=== PATIENT | female | born 1945 | race Caucasian/White ===

== ENCOUNTER 2017-03-22 19:43 | Emergency (ER) | payer MEDICARE, OTHER ==
[2017-03-22] MEDS ORDERED: Tylenol #3 Tablet PO ONE (20:07)
[2017-03-22] MEDS ORDERED: Zofran 4 MG/2 ML VIAL IV ONE (20:10)
[2017-03-22] MEDS ORDERED: Unasyn 3GM / NaCl 100ML 100 ML IV ONE (20:10)
[2017-03-22] MEDS ORDERED: SUBLIMAZE 100 MCG/2 ML IV ONE (20:11)
[2017-03-22] MEDS ORDERED: Sodium Chloride 0.9% 1000 ML 1,000 ML IV SCH (20:15)
[2017-03-22] MEDS ORDERED: Zofran 4 MG/2 ML VIAL ONE (20:17)
[2017-03-22] MEDS ORDERED: Tylenol #3 Tablet ONE (20:18)
--- NOTE | 2017-03-22 20:18 | ERPHSYRPT ---
- History of Present Illness Time Seen by Provider: 03/22/17 20:00 Source: patient Exam Limitations: clinical condition Physician History: PATIENT COMPLAINS OF RIGHT LOWER TOOTHACHE, FOLLOWED BY INCREASING PAIN WITH JAW SWELLING TODAY. DENIES FEVER OR CHILLS, DIFFICULTY SWELLING. Timing/Duration: abrupt onset Severity: moderate ENT Location: facial, dental Prearrival Treatment: no prearrival treatment Modifying Factors: Improves With: nothing Associated Symptoms: facial pain/swelling Allergies/Adverse Reactions: No Known Drug Allergies Allergy (Unverified 03/22/17 20:17) Home Medications: Aspirin 1 tab DAILY 03/22/17 [History] Multivitamin W-Minerals/Lutein [Centrum Silver Tablet] 1 tab DAILY 03/22/17 [ History] - Review of Systems Constitutional: No Fever, No Chills Eyes: No Symptoms Ears, Nose, & Throat: Loose Teeth Respiratory: No Cough, No Dyspnea Cardiac: No Chest Pain, No Edema, No Syncope Abdominal/Gastrointestinal: No Abdominal Pain, No Nausea, No Vomiting, No Diarrhea Genitourinary Symptoms: No Dysuria Musculoskeletal: No Back Pain, No Neck Pain Skin: No Rash Neurological: No Dizziness, No Focal Weakness, No Sensory Changes Psychological: No Symptoms Endocrine: No Symptoms All Other Systems: Reviewed and Negative - Nursing Vital Signs Nursing Vital Signs: Initial Vital Signs Pulse Rate 62 Respiratory Rate 16 Blood Pressure [Right Arm] 152/69 Pain Intensity 2 - Physical Exam General Appearance: no apparent distress, alert Eye Exam: bilateral eye: PERRL, EOMI Ear Exam: bilateral ear: auricle normal, canal normal, TM normal Nasal Exam: normal inspection Throat Exam: pharynx normal, dental tenderness (RIGHT LOWER 1ST MOLAR CAPPED, GINGIVAL SWELLING WITH TENDERNESS), moist mucus membranes, No tonsillar exudate Neck Exam: supple Cardiovascular/Respiratory Exam: normal breath sounds, regular rate/rhythm Abdominal Exam: non-tender, soft Neurologic Exam: alert, oriented x 3, sensation nml, No motor deficits Skin Exam: normal color, warm, dry SpO2: 99 Oxygen Delivery: Room Air Ordered Tests: Active Orders 24 hr Category Date Time Status IV Insertion STAT Care 03/22/17 20:07 Active BLOOD CULTURE Stat Lab 03/22/17 20:35 Received CBC W DIFF Stat Lab 03/22/17 20:30 Completed Medication Summary Generic Name Dose Route Start Last Admin Trade Name Freq PRN Reason Stop Dose Admin Sodium Chloride 1,000 mls @ 100 mls/hr 03/22/17 20:15 03/22/17 20:34 Sodium Chloride 0.9% 1000 Ml IV 04/21/17 20:14 100 mls/hr .Q10H SIMONA Administration Discontinued Medications Generic Name Dose Route Start Last Admin Trade Name Atul PRN Reason Stop Dose Admin Acetaminophen/Codeine Phosphate 2 tab 03/22/17 20:07 Tylenol #3 Tablet PO 03/22/17 20:08 SENT HOME W/ PATIENT ONE Acetaminophen/Codeine Phosphate Confirm 03/22/17 20:18 Tylenol #3 Tablet Administered 03/22/17 20:19 Dose 2 tab .ROUTE .STK-MED ONE Fentanyl Citrate 50 mcg 03/22/17 20:11 03/22/17 20:34 Sublimaze 100 Mcg/2 Ml IV 03/22/17 20:12 50 mcg STAT ONE Administration Fentanyl Citrate Confirm 03/22/17 20:24 Sublimaze 100 Mcg/2 Ml Administered 03/22/17 20:25 Dose 100 mcg .ROUTE .STK-MED ONE Ampicillin Sodium/Sulbactam Sodium 100 mls @ 100 mls/hr 03/22/17 20:10 20:34 Unasyn 3gm / Nacl 100ml IV 03/22/17 21:09 100 mls/hr STAT ONE Administration Ampicillin Sodium/Sulbactam Sodium Confirm 03/22/17 20:21 Unasyn 3gm / Nacl 100ml Administered 03/22/17 20:22 Dose 100 mls @ ud .ROUTE .STK-MED ONE Ondansetron HCl 4 mg 03/22/17 20:10 03/22/17 20:34 Zofran 4 Mg/2 Ml Vial IV 03/22/17 20:11 4 mg STAT ONE Administration Ondansetron HCl Confirm 03/22/17 20:17 Zofran 4 Mg/2 Ml Vial Administered 03/22/17 20:18 Dose 4 mg .ROUTE .STK-MED ONE Lab/Rad Data: Laboratory Result Diagrams 03/22/17 20:30 Laboratory Results 03/22/17 Range/Units 20:30 WBC 10.0 (4.0-10.5) K/mm3 RBC 5.02 (4.1-5.4) M/mm3 Hgb 14.9 (12.0-16.0) gm/dl Hct 43.7 (35-47) % MCV 87.1 (78-100) fl MCH 29.7 (26-32) pg MCHC 34.1 (32-36) g/dl RDW 14.2 H (11.5-14.0) % Plt Count 280 (150-450) K/mm3 MPV 9.4 (6-9.5) fl Gran % 58.5 (36.0-66.0) % Lymphocytes % 27.4 (24.0-44.0) % Monocytes % 8.4 (0.0-12.0) % Eosinophils % 5.4 H (0.00-5.0) % Basophils % 0.3 (0.0-0.4) % Basophils # 0.03 (0-0.4) - Progress Progress Note: 03/22/17 20:52 PATIENT GIVEN IV UNASYN 3GM, FENTANYL 0.1MG IV Counseled pt/family regarding: lab results, diagnosis, need for follow-up - Departure Time of Disposition: 21:35 Departure Disposition: Home Clinical Impression: GINGIVAL ABSCESS Condition: Stable Critical Care Time: No Referrals: JARROD MONTES [Primary Care Provider] - Additional Instructions: CONSULT YOUR DENTIST FOR FOLLOWUP SCHEDULED. ANTIBIOTIC AUGMENTIN 875MG TWICE DAILY FOR 10 DAYS. TYLENOL #3 EVERY 4 HOURS FOR PAIN NEEDED. TYLENOL OR MOTRIN NEEDED FOR FEVER. RETURN TO EMERGENCY FOR INCREASING JAW SWELLING, ONSET OF FEVER OR DIFFICULTY BREATHING OR SWALLOWING. Prescriptions: Codeine Phosphate/APAP #3 [Tylenol #3 Tablet] 1 tab PO Q4H PRN PRN #14 tablet PRN Reason: Pain Amox Tr/Potass Clav. 875 mg [Augmentin 875-125 Tablet] 875 mg PO BID #20 tablet
[2017-03-22] MEDS ORDERED: Sodium Chloride 0.9% 1000 ML 1,000 ML ONE (20:19)
[2017-03-22] MEDS ORDERED: Unasyn 3GM / NaCl 100ML 100 ML ONE (20:21)
[2017-03-22] MEDS ORDERED: SUBLIMAZE 100 MCG/2 ML ONE (20:24)
[2017-03-22 20:41] LABS: BASOPHIL % 0.3 % (0.0-0.4); Eosinophil % 5.4 % (0.00-5.0); Granulocytes % 58.5 % (36.0-66.0); Lymphocytes % 27.4 % (24.0-44.0); Mean Cell Volume 87.1 fl (78-100); Mean Corpuscular Hemoglobin 29.7 pg (26-32); Mean Platelet Volume 9.4 fl (6-9.5); Monocytes % 8.4 % (0.0-12.0); Platelet Count 280 K/mm3 (150-450); Red Blood Count 5.02 M/mm3 (4.1-5.4); Red Cell Distribution Width 14.2 % (11.5-14.0)
[2017-03-22 21:53] VITALS: BP 135/71; PULSE 68; O2SAT 97
== END 2017-03-22 22:07 | disposition home or self-care (01) ==
LOC: ED 19:43
DX: K05.219 Aggressive periodontitis, localized, unspecified severity (principal)
CPT/HCPCS: 36000; 36415; 85025; 87040; 96360; 96365; 96374; 96375; 99284; J0295; J2405; J3010; A9270-GY

== ENCOUNTER 2022-02-06 12:21 | Emergency (ER) | payer MEDICARE, BC ==
[2022-02-06 12:49] VITALS: O2SAT 97
[2022-02-06] MEDS ORDERED: Sodium Chloride 0.9% 1000 ML 1,000 ML ONE (13:00)
[2022-02-06] MEDS: Sodium Chloride 0.9% 1000 ML 1,000 ML IV STA (13:02)
[2022-02-06 13:11] LABS: Basophil (Absolute #) 0.02 (0-0.4); Eosinophil % 3.6 % (0.00-5.0); Eosinophil (Absolute #) 0.23 (0-0.5); Hematocrit 43.9 % (35-47); Lymphocyte (Absolute #) 1.24 (1.0-4.6); Lymphocytes % 19.6 % (24.0-44.0); Mean Cell Volume 88.2 fl (78-100); Mean Corpuscular Hemoglobin 30.1 pg (26-32); Mean Corpuscular Hgb Concent. 34.2 g/dl (32-36); Mean Platelet Volume 9.2 fl (7.5-11.0); Monocyte (Absolute #) 0.53 (0.0-1.3); Monocytes % 8.4 % (0.0-12.0); Neutrophil % 68.1 % (36.0-66.0); Platelet Count 278 K/mm3 (150-450); Red Blood Count 4.98 M/mm3 (4.1-5.4); Red Cell Distribution Width 14.2 % (11.5-14.0); White Blood Count 6.3 K/mm3 (4.0-10.5)
[2022-02-06 13:21] LABS: INR 0.98 (0.8-3.0); PROTIME 11.6 SECONDS (9.4-12.5)
[2022-02-06 13:24] LABS: PTT 29.2 SECONDS (25.1-36.5)
[2022-02-06 13:40] LABS: ALKALINE PHOSPHATASE 73 U/L (38-126); ANION GAP 13.9 MEQ/L (5-15); BLOOD UREA NITROGEN 16 mg/dL (7-17); CHLORIDE 107 mmol/L (98-107); Calcium 9.3 mg/dL (8.4-10.2); Carbon Dioxide 23 mmol/L (22-30); Creatinine 1 0.73 mg/dL (0.52-1.04); EST GLOMERULAR FILTRATION RATE > 60.0 ML/MIN; Glucose 150 mg/dL (74-106); NT PRO BNP 151 pg/mL (0-1800); Potassium 4.2 mmol/L (3.5-5.1); SGOT/AST 36 U/L (14-36); SGPT/ALT 28 U/L (0-35); SODIUM 140 mmol/L (137-145); Total Protein 7.4 g/dL (6.3-8.2)
[2022-02-06] MEDS: Zofran 4 MG/2 ML VIAL IV ONE (14:24)
[2022-02-06] MEDS ORDERED: Hydromorphone 1 mg/ml Injection ONE (14:24)
[2022-02-06] MEDS ORDERED: Zofran 4 MG/2 ML VIAL ONE (14:24)
[2022-02-06] MEDS: Hydromorphone 1 mg/ml Injection IV ONE (14:25)
--- NOTE | 2022-02-06 14:37 | XRAY ---
Indication: Pleuritic chest pain. Multiple contiguous axial images obtained through the chest using 80 cc Isovue 370 contrast. Comparison: None Lungs demonstrates minimal bibasilar subsegmental atelectasis/scarring. No suspicious pulmonary mass/nodule, infiltrate, or effusion. Heart not enlarged. Aorta is normal in course and caliber. [place] right paratracheal calcified nodes. No pathologic mediastinal/hilar lymphadenopathy. Bony thorax intact with osteopenia, mild dextroscoliosis centered at T7, and moderate degenerative changes throughout the spine. Limited upper abdomen demonstrates cholecystectomy clips. Impression: 1. Bibasilar subsegmental atelectasis/scarring, chronic bony findings, and old granulomatous disease. 2. Remaining CT chest with contrast exam is negative.
--- NOTE | 2022-02-06 15:30 | ERPHSYRPT ---
- History of Present Illness Time Seen by Provider: 02/06/22 12:55 Source: patient Exam Limitations: no limitations Patient Subjective Stated Complaint: RIGHT SIDED UPPER BACK/ SHOULDER PAIN Triage Nursing Assessment: ALERT AND ORIENTED, AMBULATED TO ROOM PER SELF. EYES PERRLA, BILATERAL EQUAL CAGE UNLOADER, LUNGS CLEAR, POSITIVE BOWEL SOUNDS. Physician History: Patient is a 76-year-old female who presents with the onset yesterday of pleuritic chest pain in the right scapular area it was severe she took gabapentin last night and finally got some relief went to sleep it seems slightly better this morning but she is worried about the cause of this pain. Timing/Duration: yesterday Quality: throbbing Back Pain Location: T-spine, paraspinous muscles Severity of Pain-Max: moderate Severity of Pain-Current: mild Modifying Factors: Improves With: movement, other (Deep breath) Allergies/Adverse Reactions: erythromycin base Allergy (Verified 02/06/22 12:43) Penicillins Allergy (Verified 02/06/22 12:43) Home Medications: Aspirin 1 tab DAILY 03/22/17 [History] Multivitamin W-Minerals/Lutein [Centrum Silver Tablet] 1 tab DAILY 03/22/17 [History] Hx Tetanus, Diphtheria Vaccination/Date Given: No Hx Influenza Vaccination/Date Given: Yes Hx Pneumococcal Vaccination/Date Given: No Travel Risk - International Travel Have you traveled outside of the country in past 3 weeks: No - Coronavirus Screening Are you exhibiting any of the following symptoms?: No - Vaccine Status Have you recieved a Covid-19 vaccination: Yes Hot Patcher: [place] - Vaccination Dates Date of 2cond Vaccination (if applicable): 01/07/21 - Review of Systems Constitutional: No Fever, No Chills Eyes: No Symptoms Ears, Nose, & Throat: No Symptoms Respiratory: No Cough, No Dyspnea Cardiac: No Chest Pain, No Edema, No Syncope Abdominal/Gastrointestinal: No Abdominal Pain, No Nausea, No Vomiting, No Diarrhea Genitourinary Symptoms: No Dysuria Musculoskeletal: No Back Pain, No Neck Pain Skin: No Rash Neurological: No Dizziness, No Focal Weakness, No Sensory Changes Psychological: No Symptoms Endocrine: No Symptoms All Other Systems: Reviewed and Negative - Past Medical History Pertinent Past Medical History: Yes Neurological History: No Pertinent History Cardiac History: No Pertinent History Respiratory History: Asthma, COPD Endocrine Medical History: Hypothyroidism, Other Musculoskeletal History: Osteoarthritis GI Medical History: GERD Other Medical History: R TKA 08/2020 - Past Surgical History Past Surgical History: Yes Neuro Surgical History: No Pertinent History Gastrointestinal: Cholecystectomy Musculoskeletal: Joint Replacement, Other Female Surgical History: Hysterectomy Other Surgical History: PARTIAL THYROIDCECTOMY, left shoulder, BILATERAL TOTAL KNEE REPLACEMENT - Social History Smoking Status: Never smoker Exposure to second hand smoke: No Drug Use: none Patient Lives Alone: No - Nursing Vital Signs Nursing Vital Signs: Initial Vital Signs Temperature 97.1 F 02/06/22 12:46 Pulse Rate 67 02/06/22 12:46 Respiratory Rate 20 02/06/22 12:46 Blood Pressure 173/88 02/06/22 12:46 O2 Sat by Pulse Oximetry 97 02/06/22 12:46 Pain Scale Pain Intensity 8 - Physical Exam General Appearance: no apparent distress, alert Eye Exam: PERRL/EOMI, eyes nml inspection Neck Exam: normal inspection, non-tender, supple, full range of motion, No meningismus, No midline tenderness Respiratory Exam: normal breath sounds, lungs clear, No respiratory distress Cardiovascular Exam: regular rate/rhythm, normal heart sounds Gastrointestinal Exam: soft, No tenderness, No mass Extremity Exam: normal inspection, normal range of motion, No calf tenderness, No pedal edema Neurologic Exam: alert, oriented x 3, cooperative, clam treader II-XII nml as tested, normal mood/affect, nml station & gait, sensation nml, No motor deficits Skin Exam: normal color, warm, dry, No rash SpO2: 97 - Course Nursing assessment & vital signs reviewed: Yes EKG Interpreted by Me: RATE (58), Sinus Rhythm, NORMAL AXIS, NORMAL INTERVALS, NORMAL QRS - CT Exams Chest CT Interpretation: Negative Ordered Tests: Active Orders 24 hr Category Date Time Status Tube Rebuilder STAT Care 02/06/22 12:46 Active EKG-ER Only STAT Care 02/06/22 12:46 Active IV Insertion STAT Care 02/06/22 12:46 Active CHEST WITH CONTRAST [CT] Stat Exams 02/06/22 12:46 Completed CBC W DIFF Stat Lab 02/06/22 13:05 Completed CMP Stat Lab 02/06/22 13:05 Completed D-DIMER QUANTITATIVE Stat Lab 02/06/22 13:05 Completed NT PRO BNP Stat Lab 02/06/22 13:05 Completed PROTIME WITH INR Stat Lab 02/06/22 13:05 Completed PTT Stat Lab 02/06/22 13:05 Completed TROPONIN Q3H Lab 02/06/22 13:00 Completed TROPONIN Q3H Lab 02/06/22 16:00 Ordered TROPONIN Q3H Lab 02/06/22 19:00 Ordered TROPONIN Q3H Lab 02/06/22 22:00 Ordered TROPONIN Q3H Lab 02/07/22 01:00 Ordered Medication Summary Discontinued Medications Generic Name Dose Route Start Last Admin Trade Name Freq PRN Reason Stop Dose Admin Hydromorphone HCl Confirm 02/06/22 14:24 Hydromorphone 1 Mg/1ml Inj 1 Mg/Ml Syringe Administered 02/06/22 14:25 Dose 1 mg .ROUTE .STK-MED ONE Hydromorphone HCl 1 mg 02/06/22 14:32 02/06/22 14:25 Hydromorphone 1 Mg/1ml Inj 1 Mg/Ml Syringe IV 02/06/22 14:33 1 mg STAT ONE Administration Sodium Chloride 1,000 mls @ 999 mls/hr 02/06/22 12:46 02/06/22 14:03 Sodium Chloride 0.9% 1000 Ml IV 02/06/22 13:46 Infused .Q1H1M STA Infusion Sodium Chloride Confirm 02/06/22 13:00 Sodium Chloride 0.9% 1000 Ml Administered 02/06/22 13:01 Dose 1,000 mls @ ud .ROUTE .STK-MED ONE Ondansetron HCl Confirm 02/06/22 14:24 Ondansetron Hcl 4 Mg/2 Ml Vial Administered 02/06/22 14:25 Dose 4 mg .ROUTE .STK-MED ONE Ondansetron HCl 4 mg 02/06/22 14:29 02/06/22 14:24 Ondansetron Hcl 4 Mg/2 Ml Vial IV 02/06/22 14:30 4 mg STAT ONE Administration Lab/Rad Data: Laboratory Result Diagrams 02/06/22 13:05 02/06/22 13:05 Laboratory Results 02/06/22 02/06/22 02/06/22 Range/Units 13:05 13:05 13:05 WBC 6.3 (4.0-10.5) K/mm3 RBC 4.98 (4.1-5.4) M/mm3 Hgb 15.0 (12.0-16.0) gm/dl Hct 43.9 (35-47) % MCV 88.2 (78-100) fl MCH 30.1 (26-32) pg MCHC 34.2 (32-36) g/dl RDW 14.2 H (11.5-14.0) % Plt Count 278 (150-450) K/mm3 MPV 9.2 (7.5-11.0) fl Gran % 68.1 H (36.0-66.0) % Eos # (Auto) 0.23 (0-0.5) Absolute Lymphs (auto) 1.24 (1.0-4.6) Absolute Monos (auto) 0.53 (0.0-1.3) Lymphocytes % 19.6 L (24.0-44.0) % Monocytes % 8.4 (0.0-12.0) % Eosinophils % 3.6 (0.00-5.0) % Basophils % 0.3 (0.0-0.4) % Absolute Granulocytes 4.30 (1.4-6.9) Basophils # 0.02 (0-0.4) PT 11.6 (9.4-12.5) SECONDS INR 0.98 (0.8-3.0) APTT 29.2 (25.1-36.5) SECONDS D-Dimer 478 (215-500) ng/mL Sodium 140 (137-145) mmol/L Potassium 4.2 (3.5-5.1) mmol/L Chloride 107 (98-107) mmol/L Carbon Dioxide 23 (22-30) mmol/L Anion Gap 13.9 (5-15) MEQ/L BUN 16 (7-17) mg/dL Creatinine 0.73 (0.52-1.04) mg/dL Estimated GFR > 60.0 ML/MIN Glucose 150 H (74-106) mg/dL Calcium 9.3 (8.4-10.2) mg/dL Total Bilirubin 0.60 (0.2-1.3) mg/dL AST 36 (14-36) U/L ALT 28 (0-35) U/L Alkaline Phosphatase 73 (38-126) U/L Troponin I (0.000-0.034) ng/mL NT-Pro-B Natriuret Pep 151 (0-1800) pg/mL Serum Total Protein 7.4 (6.3-8.2) g/dL Albumin 4.0 (3.5-5.0) g/dL 02/06/22 Range/Units 13:00 WBC (4.0-10.5) K/mm3 RBC (4.1-5.4) M/mm3 Hgb (12.0-16.0) gm/dl Hct (35-47) % MCV (78-100) fl MCH (26-32) pg MCHC (32-36) g/dl RDW (11.5-14.0) % Plt Count (150-450) K/mm3 MPV (7.5-11.0) fl Gran % (36.0-66.0) % Eos # (Auto) (0-0.5) Absolute Lymphs (auto) (1.0-4.6) Absolute Monos (auto) (0.0-1.3) Lymphocytes % (24.0-44.0) % Monocytes % (0.0-12.0) % Eosinophils % (0.00-5.0) % Basophils % (0.0-0.4) % Absolute Granulocytes (1.4-6.9) Basophils # (0-0.4) PT (9.4-12.5) SECONDS INR (0.8-3.0) APTT (25.1-36.5) SECONDS D-Dimer (215-500) ng/mL Sodium (137-145) mmol/L Potassium (3.5-5.1) mmol/L Chloride (98-107) mmol/L Carbon Dioxide (22-30) mmol/L Anion Gap (5-15) MEQ/L BUN (7-17) mg/dL Creatinine (0.52-1.04) mg/dL Estimated GFR ML/MIN Glucose (74-106) mg/dL Calcium (8.4-10.2) mg/dL Total Bilirubin (0.2-1.3) mg/dL AST (14-36) U/L ALT (0-35) U/L Alkaline Phosphatase (38-126) U/L Troponin I < 0.012 (0.000-0.034) ng/mL NT-Pro-B Natriuret Pep (0-1800) pg/mL Serum Total Protein (6.3-8.2) g/dL Albumin (3.5-5.0) g/dL - Progress Progress: improved - Departure Departure Disposition: Home Clinical Impression: Pleurisy Condition: Stable Critical Care Time: No Referrals: JARROD MONTES [Primary Care Provider] - Follow up/PCP as directed Instructions: Pleuritic Chest Pain (DC) Prescriptions: Prednisone 10 mg [Deltasone 10 mg] 20 mg PO BID 5 Days #10 tablet Diclofenac Sodium 50 mg [Voltaren 50 mg] 50 mg PO TID 5 Days #15 cap
[2022-02-06 16:04] VITALS: BP 134/72; PULSE 80
== END 2022-02-06 16:00 | disposition home or self-care (01) ==
LOC: ED 12:21
DX: R09.1 Pleurisy (principal); R07.81 Pleurodynia; J44.9 Chronic obstructive pulmonary disease, unspecified; K21.9 Gastro-esophageal reflux disease without esophagitis; Z79.52 Long term (current) use of systemic steroids; R07.9 Chest pain, unspecified
CPT/HCPCS: 36000; 36415; 71260; 80053; 83880; 84484; 85025; 85379; 85610; 85730; 93005; 93041; 96374; 96375; 99284; J1170; J2405

== ENCOUNTER 2022-03-21 08:59 | Emergency (ER) | payer MEDICARE, BC ==
--- NOTE | 2022-03-21 09:27 | ERPHSYRPT ---
- History of Present Illness Time Seen by Provider: 03/21/22 09:10 Source: patient Exam Limitations: no limitations Patient Subjective Stated Complaint: Pt states "I had this problem about 4 weeks ago and this morning it hit me again. My right shoulderblade hurts. I have a lump on my shoulderblade." Triage Nursing Assessment: PT presented alert and oriented X 3, skin pwd. Pt ambulates with an upright steady gait, able to speak in clear full sentences. pt has swollen knot in right shoulderblade. Physician History: Patient is a 76-year-old female presents to our ED for evaluation of chronic right shoulder blade pain. Patient has had this pain for 4 weeks. Patient was in our ED for the same on February 06. Patient had a complete cardiac work-up which was essentially nonremarkable. Patient was diagnosed with pleurisy at that time. Patient followed up with her primary provider Maria De Jesus Brewer nurse practitioner who ordered a ultrasound of her right shoulder blade. We are currently trying to obtain the report of the recently performed ultrasound. Patient has a palpable mass to the right shoulder blade which when palpated reproduces her symptoms. Pain described as an ache that is localized. Pain worse with movement and palpation. Pain improved with rest. No associated chest pain. No shortness of breath. No nausea vomiting or diaphoresis.Patient voices no other complaints or concerns at this time. Timing/Duration: week(s) (4 weeks) Severity: moderate Modifying Factors: Improves With: other (Pain worsens when she lays flat while sleeping. Patient tries to sleep on her left side to avoid pressure on the right scapula) Associated Symptoms: denies symptoms, No nausea, No vomiting, No shortness of breath, No diaphoresis, No cough, No syncope Allergies/Adverse Reactions: erythromycin base Allergy (Verified 02/06/22 12:43) Penicillins Allergy (Verified 02/06/22 12:43) Home Medications: Aspirin 1 tab DAILY 03/22/17 [History] Multivitamin W-Minerals/Lutein [Centrum Silver Tablet] 1 tab DAILY 03/22/17 [History] Hx Tetanus, Diphtheria Vaccination/Date Given: No Hx Influenza Vaccination/Date Given: No Hx Pneumococcal Vaccination/Date Given: Yes Immunizations Up to Date: Yes Travel Risk - International Travel Have you traveled outside of the country in past 3 weeks: No - Coronavirus Screening Are you exhibiting any of the following symptoms?: No Close contact with a COVID-19 positive Pt in past 14-21 Days: No - Vaccine Status Have you recieved a Covid-19 vaccination: Yes 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: [employer] - Vaccination Dates Date of 2cond Vaccination (if applicable): 01/07/21 - Review of Systems Constitutional: No Symptoms, No Fever, No Chills Eyes: No Symptoms Ears, Nose, & Throat: No Symptoms Respiratory: No Symptoms, No Cough, No Dyspnea Cardiac: No Symptoms, No Chest Pain, No Edema, No Syncope Abdominal/Gastrointestinal: No Symptoms, No Abdominal Pain, No Nausea, No Vomiting, No Diarrhea Genitourinary Symptoms: No Symptoms, No Dysuria Musculoskeletal: No Symptoms, No Back Pain, No Neck Pain Skin: No Symptoms, No Rash Neurological: No Symptoms, No Dizziness, No Focal Weakness, No Sensory Changes Psychological: No Symptoms Endocrine: No Symptoms Hematologic/Lymphatic: No Symptoms Immunological/Allergic: No Symptoms All Other Systems: Reviewed and Negative - Past Medical History Pertinent Past Medical History: Yes Neurological History: No Pertinent History Cardiac History: No Pertinent History Respiratory History: Asthma, COPD Endocrine Medical History: Hypothyroidism, Other Musculoskeletal History: Osteoarthritis GI Medical History: GERD Other Medical History: R TKA 08/2020 - Past Surgical History Past Surgical History: Yes Neuro Surgical History: No Pertinent History Gastrointestinal: Cholecystectomy Musculoskeletal: Joint Replacement, Other Female Surgical History: Hysterectomy Other Surgical History: PARTIAL THYROIDCECTOMY, left shoulder, BILATERAL TOTAL KNEE REPLACEMENT - Social History Smoking Status: Never smoker Exposure to second hand smoke: No Drug Use: none Patient Lives Alone: No - Nursing Vital Signs Nursing Vital Signs: Initial Vital Signs Temperature 96.2 F 03/21/22 09:02 Pulse Rate 68 03/21/22 09:02 Respiratory Rate 22 03/21/22 09:02 Blood Pressure 182/80 03/21/22 09:02 O2 Sat by Pulse Oximetry 96 03/21/22 09:02 Pain Scale Pain Intensity 3 - Physical Exam General Appearance: no apparent distress, alert Eye Exam: PERRL/EOMI, eyes nml inspection Ears, Nose, Throat Exam: normal ENT inspection, TMs normal, pharynx normal, moist mucous membranes Neck Exam: normal inspection, non-tender, supple, full range of motion Respiratory Exam: normal breath sounds, lungs clear, No respiratory distress Cardiovascular Exam: regular rate/rhythm, normal heart sounds, normal peripheral pulses Gastrointestinal/Abdomen Exam: soft, normal bowel sounds, No tenderness, No mass Back Exam: normal inspection, normal range of motion, No CVA tenderness, No vertebral tenderness Extremity Exam: normal inspection, normal range of motion, pelvis stable, other (Palpable soft tissue mass just superficial to the right scapula. Overlying soft tissue intact. No signs of trauma. Palpation reproduces pain.) Neurologic Exam: alert, oriented x 3, cooperative, normal mood/affect, nml cerebellar function, nml station & gait, sensation nml, No motor deficits Skin Exam: normal color, warm, dry, No rash Lymphatic Exam: No adenopathy SpO2 Interpretation: normal SpO2: 96 O2 Delivery: Room Air - Course Nursing assessment & vital signs reviewed: Yes EKG Interpreted by Me: RATE (54), Sinus Rhythm, NORMAL AXIS, NORMAL INTERVALS - CT Exams Chest CT Interpretation: Tele-radiologist Report (CT chest reveals osteopenia dextroscoliosis spine arthritis lung granuloma junky right paratracheal lymph node. Otherwise negative. No soft tissue masses observed in the region of the right scapula.) Ordered Tests: Active Orders 24 hr Category Date Time Status Analyst [employer]ing STAT Care 03/21/22 10:11 Active EKG-ER Only STAT Care 03/21/22 10:05 Active IV Insertion STAT Care 03/21/22 10:16 Active Pulse Oximetry (ED) STAT Care 03/21/22 10:11 Active CHEST WITH CONTRAST [CT] Stat Exams 03/21/22 10:11 Completed CBC W DIFF Stat Lab 03/21/22 10:30 Completed CMP Stat Lab 03/21/22 10:30 Completed TROPONIN Q3H Lab 03/21/22 10:30 Completed TROPONIN Q3H Lab 03/21/22 13:20 Received TROPONIN Q3H Lab 03/21/22 16:15 Ordered TROPONIN Q3H Lab 03/21/22 19:15 Ordered TROPONIN Q3H Lab 03/21/22 22:15 Ordered Medication Summary Discontinued Medications Generic Name Dose Route Start Last Admin Trade Name Freq PRN Reason Stop Dose Admin Acetaminophen 975 mg 03/21/22 09:29 03/21/22 09:38 Acetaminophen 325 Mg Tablet PO 03/21/22 09:30 975 mg STAT ONE Administration Acetaminophen Confirm 03/21/22 09:31 Acetaminophen 325 Mg Tablet Administered 03/21/22 09:32 Dose 975 mg .ROUTE .[facility] ONE Ketorolac Tromethamine 30 mg 03/21/22 09:28 03/21/22 09:37 Ketorolac Tromethamine 30 Mg/Ml Inj IM 03/21/22 09:29 30 mg STAT ONE Administration Ketorolac Tromethamine Confirm 03/21/22 09:31 Ketorolac Tromethamine 30 Mg/Ml Inj Administered 03/21/22 09:32 Dose 30 mg .ROUTE .[facility] ONE Lab/Rad Data: Laboratory Result Diagrams 03/21/22 10:30 03/21/22 10:30 Laboratory Results 03/21/22 03/21/22 03/21/22 Range/Units 10:30 10:30 10:30 WBC 7.7 (4.0-10.5) K/mm3 RBC 4.92 (4.1-5.4) M/mm3 Hgb 14.8 (12.0-16.0) gm/dl Hct 44.0 (35-47) % MCV 89.4 (78-100) fl MCH 30.1 (26-32) pg MCHC 33.6 (32-36) g/dl RDW 14.0 (11.5-14.0) % Plt Count 273 (150-450) K/mm3 MPV 9.4 (7.5-11.0) fl Gran % 68.4 H (36.0-66.0) % Eos # (Auto) 0.27 (0-0.5) Absolute Lymphs (auto) 1.46 (1.0-4.6) Absolute Monos (auto) 0.69 (0.0-1.3) Lymphocytes % 18.9 L (24.0-44.0) % Monocytes % 8.9 (0.0-12.0) % Eosinophils % 3.5 (0.00-5.0) % Basophils % 0.3 (0.0-0.4) % Absolute Granulocytes 5.28 (1.4-6.9) Basophils # 0.02 (0-0.4) Sodium 142 (137-145) mmol/L Potassium 4.6 (3.5-5.1) mmol/L Chloride 107 (98-107) mmol/L Carbon Dioxide 28 (22-30) mmol/L Anion Gap 11.8 (5-15) MEQ/L BUN 16 (7-17) mg/dL Creatinine 0.78 (0.52-1.04) mg/dL Estimated GFR > 60.0 ML/MIN Glucose 95 (74-106) mg/dL Calcium 9.1 (8.4-10.2) mg/dL Total Bilirubin 0.50 (0.2-1.3) mg/dL AST 33 (14-36) U/L ALT 31 (0-35) U/L Alkaline Phosphatase 78 (38-126) U/L Troponin I < 0.012 (0.000-0.034) ng/mL Serum Total Protein 7.5 (6.3-8.2) g/dL Albumin 4.0 (3.5-5.0) g/dL - Progress Progress: improved Progress Note: 03/21/22 10:13 Patient received Toradol and Tylenol for pain control. We obtained imaging studies performed at [facility] over the past 10 days. Soft tissue neck showed no significant findings. Unremarkable soft tissue neck radiographs.X-ray right clavicle showed demineralized bony structures. Otherwise right clavicle was intact.Ultrasound chest shows no abnormalities identified in the area of the right posterior back. CT recommended. CT scan has not yet been performed.Ultrasound of the thyroid showed a small right lobe of thyroid tissue with a single small nodule. Normal in size left lobe thyroid gland homogenous in appearance with at least 4 discrete nodules present. All of the 5 identified thyroid nodules appear to be consistent with TR 2 ordered TR 3 nodules. A INSPECTOR [employer]AL [employer]SEM[employer] read recommendation follow-up in 1-3 and 5 years. 03/21/22 10:17 Because of the inconclusive ultrasound we will order a CT scan of the thorax to further evaluate the soft tissue mass. Patient is aware that she will require follow-up for thyroid nodule. CT performed in our ED is nonconclusive with regard to pain in her right scapula/mass near the right scapula. Patient may need an MRI for further evaluation. No indication for further work-up at this time. Will discharge home. Patient agrees to follow-up with her primary care doctor within 48 hours for evaluation. Patient states her pain is significantly improved Portions of this note were created with voice recognition technology. There may be grammatical, spelling, punctuation or sound alike errors 03/21/22 13:55 Counseled pt/family regarding: diagnosis, need for follow-up - Departure Departure Disposition: Home Clinical Impression: Thyroid nodule, Upper back soft tissue mass, Back pain Condition: Stable Critical Care Time: No Referrals: JARROD MONTES [Primary Care Provider] - Follow up/PCP as directed Additional Instructions: Discharge/Care Plan SEAN GOLDMAN was seen on 03/21/22 in the Emergency Room. The patient was counseled regarding Diagnosis,Lab results, Imaging studies, need for follow up and when to return to the Emergency Room. Prescriptions given: Discharge Note I have spoken with the patient and/or caregivers. I have explained the patient's condition, diagnosis and treatment plan based on the information available to me at this time. I have answered the patient's and/or caregiver's questions and addressed any concerns. The patient and/or caregivers have as good understanding of the patient's diagnosis, condition and treatment plan as can be expected at this point. The vital signs have been stable. The patient's condition is stable and appropriate for discharge from the emergency department. The patient will pursue further outpatient evaluation with the primary care physician or other designated or consulting physician as outlined in the discharge instructions. The patient and/or caregivers are agreeable to this plan of care and follow-up instructions have been explained in detail. The patient and/or caregivers have received these instruction. The patient/and or caregivers are aware that any significant change in condition or worsening of symptoms should prompt an immediate return to this or the closest emergency department or call 911.
[2022-03-21] MEDS ORDERED: TORAdol 30 mg Injection IM ONE (09:28)
[2022-03-21] MEDS ORDERED: TYLENOL 325 MG PO ONE (09:29)
[2022-03-21] MEDS ORDERED: TORAdol 30 mg Injection ONE (09:31)
[2022-03-21] MEDS ORDERED: TYLENOL 325 MG ONE (09:31)
[2022-03-21 10:44] LABS: Absolute Neutrophil Ct (ANC) 5.28 (1.4-6.9); Basophil (Absolute #) 0.02 (0-0.4); Eosinophil % 3.5 % (0.00-5.0); Eosinophil (Absolute #) 0.27 (0-0.5); Hemoglobin 14.8 gm/dl (12.0-16.0); Lymphocyte (Absolute #) 1.46 (1.0-4.6); Lymphocytes % 18.9 % (24.0-44.0); Mean Cell Volume 89.4 fl (78-100); Mean Corpuscular Hemoglobin 30.1 pg (26-32); Mean Corpuscular Hgb Concent. 33.6 g/dl (32-36); Mean Platelet Volume 9.4 fl (7.5-11.0); Monocyte (Absolute #) 0.69 (0.0-1.3); Monocytes % 8.9 % (0.0-12.0); Neutrophil % 68.4 % (36.0-66.0); Platelet Count 273 K/mm3 (150-450); Red Blood Count 4.92 M/mm3 (4.1-5.4); White Blood Count 7.7 K/mm3 (4.0-10.5)
[2022-03-21 11:07] LABS: ALKALINE PHOSPHATASE 78 U/L (38-126); ANION GAP 11.8 MEQ/L (5-15); BLOOD UREA NITROGEN 16 mg/dL (7-17); CHLORIDE 107 mmol/L (98-107); Calcium 9.1 mg/dL (8.4-10.2); Carbon Dioxide 28 mmol/L (22-30); Creatinine 1 0.78 mg/dL (0.52-1.04); EST GLOMERULAR FILTRATION RATE > 60.0 ML/MIN; Glucose 95 mg/dL (74-106); Potassium 4.6 mmol/L (3.5-5.1); SGOT/AST 33 U/L (14-36); SGPT/ALT 31 U/L (0-35); SODIUM 142 mmol/L (137-145); Total Protein 7.5 g/dL (6.3-8.2)
--- NOTE | 2022-03-21 12:33 | XRAY ---
Indication: Right scapula mass. Negative ultrasound one week ago [facility]. Multiple contiguous has images obtained through the chest using 80 cc Isovue 370 contrast. Cutaneous BB placed over region of interest. Comparison: February 06, 2022 Cutaneous BB is posterior to the right scapula. No focal solid/cystic soft tissue mass or suspicious bony lesions. Remaining bony thorax intact again with osteopenia, mild dextroscoliosis, and moderate degenerative changes throughout the spine. Lungs inflated with stable tiny right apical calcified granuloma. Minimal bibasilar subsegmental atelectasis/scarring. No suspicious pulmonary mass, infiltrate, or effusion. Heart not enlarged. Aorta is normal in course and caliber. Stable chunky right paratracheal calcified nodes. No pathologic mediastinal/hilar lymphadenopathy. Limited upper abdomen again emesis cholecystectomy clips. Impression: No change compared to February 06, 2022. No focal soft tissue or bony abnormality in vicinity right scapula. Stable old granulomatous disease and chronic bony findings. No new/acute abnormalities.
[2022-03-21 13:12] VITALS: BP 156/75; PULSE 55; O2SAT 96
== END 2022-03-21 14:11 | disposition home or self-care (01) ==
LOC: ED 08:59
DX: R22.2 Localized swelling, mass and lump, trunk (principal); M54.89 Other dorsalgia; E04.1 Nontoxic single thyroid nodule; J44.9 Chronic obstructive pulmonary disease, unspecified; Z79.899 Other long term (current) drug therapy
CPT/HCPCS: 36415; 71260; 80053; 84484; 85025; 93005; 93041; 94760; 96372; 99284; J1885; A9270-GY

== ENCOUNTER 2022-05-10 09:19 | Emergency (ER) | payer MEDICARE, BC ==
[2022-05-10] MEDS ORDERED: Hydromorphone 1 mg/ml Injection IV ONE (09:36)
[2022-05-10] MEDS ORDERED: Hydromorphone 1 mg/ml Injection ONE (09:38)
[2022-05-10] MEDS ORDERED: Sodium Chloride 0.9% 1000 ML 1,000 ML ONE (09:38)
[2022-05-10] MEDS ORDERED: Sodium Chloride 0.9% 1000 ML 1,000 ML IV SCH (09:45)
--- NOTE | 2022-05-10 09:45 | ERPHSYRPT ---
- History of Present Illness Time Seen by Provider: 05/10/22 09:30 Historian: patient, family Exam Limitations: no limitations Patient Subjective Stated Complaint: pt c/o of a muscle spasm in her right lateral mid side that she has been battling with since January and on and it began again last night, states that she has had CT's and an MRI with no luck on finding out what is causing it Triage Nursing Assessment: Pt brought to the ER by a friend, hypertensive, bradycardic, rates pain as 10/10, pulses normal, skin n/w/d, denies injury to back, no breathing difficulties, doesn't appear to be in any distress Physician History: Patient is a 76-year-old female who presents with a recurrence of pain in the right scapular area of the posterior chest. Her first episode was in January of this year she had another episode in March she has had 2 CTAs of the chest and one MRI all of which failed to elucidate the cause of her pain. This pain returned last night she has had no help from muscle relaxers which were prescribed in March. Timing/Duration: yesterday Activities at Onset: none Quality: sharpness, stabbing Location: other (Right scapular area of the posterior chest) Chest Pain Radiation: no radiation Severity of Pain-Max: severe Severity of Pain-Current: moderate Modifying Factors: Improves With: movement Associated Symptoms: hurts to breathe Nitro Today/Relief: no nitro taken today Aspirin Treatment Today: no aspirin today Allergies/Adverse Reactions: erythromycin base Allergy (Verified 05/10/22 09:29) Penicillins Allergy (Verified 05/10/22 09:29) Home Medications: Aspirin 1 tab DAILY 03/22/17 [History] Multivitamin W-Minerals/Lutein [Centrum Silver Tablet] 1 tab DAILY 03/22/17 [History] Ibandronate Sodium 150 mg PO UD 05/10/22 [History] Tizanidine HCl [Zanaflex] 2 mg PO HS 05/10/22 [History] Hx Tetanus, Diphtheria Vaccination/Date Given: No Hx Influenza Vaccination/Date Given: No Hx Pneumococcal Vaccination/Date Given: Yes Travel Risk - International Travel Have you traveled outside of the country in past 3 weeks: No - Coronavirus Screening Are you exhibiting any of the following symptoms?: No Close contact with a COVID-19 positive Pt in past 14-21 Days: No - Vaccine Status Have you recieved a Covid-19 vaccination: Yes 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[employer] - Vaccination Dates Date of 2cond Vaccination (if applicable): 01/07/21 - Review of Systems Constitutional: No Fever, No Chills Eyes: No Symptoms Ears, Nose, & Throat: No Symptoms Respiratory: No Cough, No Dyspnea Cardiac: Chest Pain (The pain is in the posterior chest and right scapular area is worse with a deep breath.), No Edema, No Syncope Abdominal/Gastrointestinal: No Abdominal Pain, No Nausea, No Vomiting, No Diarrhea Genitourinary Symptoms: No Dysuria Musculoskeletal: No Back Pain, No Neck Pain Skin: No Rash Neurological: No Dizziness, No Focal Weakness, No Sensory Changes Psychological: No Symptoms Endocrine: No Symptoms All Other Systems: Reviewed and Negative - Past Medical History Pertinent Past Medical History: Yes Neurological History: No Pertinent History Cardiac History: No Pertinent History Respiratory History: Asthma, COPD Endocrine Medical History: Hypothyroidism, Other Musculoskeletal History: Osteoarthritis GI Medical History: GERD Other Medical History: R TKA 08/2020 - Past Surgical History Past Surgical History: Yes Neuro Surgical History: No Pertinent History Gastrointestinal: Cholecystectomy Musculoskeletal: Joint Replacement, Other Female Surgical History: Hysterectomy Other Surgical History: PARTIAL THYROIDCECTOMY, left shoulder, BILATERAL TOTAL KNEE REPLACEMENT - Social History Smoking Status: Never smoker Exposure to second hand smoke: No Drug Use: none Patient Lives Alone: Yes - Nursing Vital Signs Nursing Vital Signs: Initial Vital Signs Temperature 97.5 F 05/10/22 09:22 Pulse Rate 55 L 05/10/22 09:22 Blood Pressure 185/79 05/10/22 09:22 O2 Sat by Pulse Oximetry 96 05/10/22 09:22 Pain Scale Pain Intensity 5 - Physical Exam General Appearance: mild distress, alert Eye Exam: PERRL/EOMI, eyes nml inspection Ears, Nose, Throat Exam: normal ENT inspection, moist mucous membranes Neck Exam: normal inspection, non-tender, supple, full range of motion Respiratory Exam: normal breath sounds, lungs clear, No respiratory distress Cardiovascular Exam: regular rate/rhythm, normal heart sounds Gastrointestinal/Abdomen Exam: soft, No tenderness, No mass Back Exam: normal inspection, No CVA tenderness, No vertebral tenderness Extremity Exam: normal inspection, normal range of motion Neurologic Exam: alert, oriented x 3, cooperative, normal mood/affect, sensation nml, No motor deficits Skin Exam: normal color, warm, dry SpO2: 96 - Course Nursing assessment & vital signs reviewed: Yes - CT Exams Chest CT Interpretation: Other (Radiologist report reviewed no acute changes.) Ordered Tests: Active Orders 24 hr Category Date Time Status EKG-ER Only STAT Care 05/10/22 09:34 Active CHEST WITH CONTRAST [CT] Stat Exams 05/10/22 09:36 Completed CBC W DIFF Stat Lab 05/10/22 09:45 Completed CK-Creatinine Phosphokinase Stat Lab 05/10/22 09:45 Completed CMP Stat Lab 05/10/22 09:45 Completed TROPONIN Q3H Lab 05/10/22 09:45 Completed TROPONIN Q3H Lab 05/10/22 12:45 Ordered TROPONIN Q3H Lab 05/10/22 15:45 Ordered TROPONIN Q3H Lab 05/10/22 18:45 Ordered TROPONIN Q3H Lab 05/10/22 21:45 Ordered Medication Summary Generic Name Dose Route Start Last Admin Trade Name Freq PRN Reason Stop Dose Admin Sodium Chloride 1,000 mls @ 100 mls/hr 05/10/22 09:45 05/10/22 09:39 Sodium Chloride 0.9% 1000 Ml IV 06/09/22 09:44 100 mls/hr .Q10H SIMONA Administration Discontinued Medications Generic Name Dose Route Start Last Admin Trade Name Freq PRN Reason Stop Dose Admin Hydromorphone HCl 1 mg 05/10/22 09:36 05/10/22 09:39 Hydromorphone 1 Mg/1ml Inj 1 Mg/Ml Syringe IV 05/10/22 09:37 1 mg STAT ONE Administration Hydromorphone HCl Confirm 05/10/22 09:38 Hydromorphone 1 Mg/1ml Inj 1 Mg/Ml Syringe Administered 05/10/22 09:39 Dose 1 mg .ROUTE .[facility] ONE Lab/Rad Data: Laboratory Result Diagrams 05/10/22 09:45 05/10/22 09:45 Laboratory Results 05/10/22 05/10/22 05/10/22 Range/Units 09:45 09:45 09:45 WBC 4.6 (4.0-10.5) x10^3/uL RBC 4.71 (4.1-5.4) x10^6/uL Hgb 14.2 (12.0-16.0) g/dL Hct 41.4 (35-47) % MCV 87.9 (78-100) fL MCH 30.1 (26-32) pg MCHC 34.3 (32-36) g/dL RDW 13.2 (11.5-14.0) % Plt Count 237 (150-450) x10^3/uL MPV 9.1 (7.5-11.0) fL Gran % 58.8 (36.0-66.0) % Immature Gran % (Auto) 0.2 (0.00-0.4) % Nucleat RBC Rel Count 0.0 (0.00-0.1) % Eos # (Auto) 0.23 (0-0.5) x10^3/uL Immature Gran # (Auto) 0.01 (0.00-0.03) x10^3u/L Absolute Lymphs (auto) 1.14 (1.0-4.6) x10^3/uL Absolute Monos (auto) 0.46 (0.0-1.3) x10^3/uL Absolute Nucleated RBC 0.00 (0.00-0.01) x10^3u/L Lymphocytes % 25.1 (24.0-44.0) % Monocytes % 10.1 (0.0-12.0) % Eosinophils % 5.1 H (0.00-5.0) % Basophils % 0.7 (0.0-0.4) % Absolute Granulocytes 2.68 (1.4-6.9) x10^3/uL Basophils # 0.03 (0-0.4) x10^3/uL Sodium 141 (137-145) mmol/L Potassium 4.5 (3.5-5.1) mmol/L Chloride 106 (98-107) mmol/L Carbon Dioxide 29 (22-30) mmol/L Anion Gap 10.5 (5-15) MEQ/L BUN 17 (7-17) mg/dL Creatinine 0.83 (0.52-1.04) mg/dL Estimated GFR > 60.0 ML/MIN Glucose 102 (74-106) mg/dL Calcium 9.5 (8.4-10.2) mg/dL Total Bilirubin 0.50 (0.2-1.3) mg/dL AST 34 (14-36) U/L ALT 29 (0-35) U/L Alkaline Phosphatase 72 (38-126) U/L Creatine Kinase 103 (30-135) U/L Troponin I < 0.012 (0.000-0.034) ng/mL Serum Total Protein 7.6 (6.3-8.2) g/dL Albumin 3.9 (3.5-5.0) g/dL - Progress Progress: improved Air Movement: good Blood Culture(s) Obtained: No Antibiotics given: No - Departure Departure Disposition: Home Clinical Impression: Pleurisy Condition: Stable Critical Care Time: No Referrals: JARROD MONTES [NON-STAFF PHY W/O PRIVILEGES] - Follow up/PCP as directed Instructions: Pleuritic Chest Pain (DC) Prescriptions: Prednisone 10 mg [Deltasone 10 mg] 20 mg PO TID 3 Days #18 tablet Diclofenac Sodium 50 mg [Voltaren 50 mg] 50 mg PO TID 5 Days #15 cap
[2022-05-10 09:50] LABS: Absolute Neutrophil Ct (ANC) 2.68 x10^3/uL (1.4-6.9); Basophil (Absolute #) 0.03 x10^3/uL (0-0.4); Eosinophil % 5.1 % (0.00-5.0); Eosinophil (Absolute #) 0.23 x10^3/uL (0-0.5); Hematocrit 41.4 % (35-47); Hemoglobin 14.2 g/dL (12.0-16.0); Lymphocyte (Absolute #) 1.14 x10^3/uL (1.0-4.6); Lymphocytes % 25.1 % (24.0-44.0); Mean Cell Volume 87.9 fL (78-100); Mean Corpuscular Hemoglobin 30.1 pg (26-32); Mean Corpuscular Hgb Concent. 34.3 g/dL (32-36); Mean Platelet Volume 9.1 fL (7.5-11.0); Monocyte (Absolute #) 0.46 x10^3/uL (0.0-1.3); Monocytes % 10.1 % (0.0-12.0); Neutrophil % 58.8 % (36.0-66.0); Platelet Count 237 x10^3/uL (150-450); Red Blood Count 4.71 x10^6/uL (4.1-5.4); Red Cell Distribution Width 13.2 % (11.5-14.0); White Blood Count 4.6 x10^3/uL (4.0-10.5)
[2022-05-10 10:04] LABS: ALBUMIN 3.9 g/dL (3.5-5.0); ALKALINE PHOSPHATASE 72 U/L (38-126); ANION GAP 10.5 MEQ/L (5-15); BLOOD UREA NITROGEN 17 mg/dL (7-17); CHLORIDE 106 mmol/L (98-107); CK-Creatinine Phosphokinase 103 U/L (30-135); Calcium 9.5 mg/dL (8.4-10.2); Carbon Dioxide 29 mmol/L (22-30); Creatinine 1 0.83 mg/dL (0.52-1.04); EST GLOMERULAR FILTRATION RATE > 60.0 ML/MIN; Glucose 102 mg/dL (74-106); Potassium 4.5 mmol/L (3.5-5.1); SGOT/AST 34 U/L (14-36); SGPT/ALT 29 U/L (0-35); SODIUM 141 mmol/L (137-145); Total Protein 7.6 g/dL (6.3-8.2)
[2022-05-10 11:15] VITALS: BP 145/73
--- NOTE | 2022-05-10 11:19 | XRAY ---
Indication: Short of breath and right pleuritic chest pain. COPD and asthma. Multiple contiguous axial images obtained through the chest using 80 cc Isovue 370 contrast. Comparison: March 21, 2022 Lungs again demonstrates stable tiny right apical calcified granuloma and minimal bilateral dependent atelectasis. No new pulmonary mass, infiltrate, effusion, or pneumothorax. Heart not enlarged. Aorta remains normal in course and caliber with minimal descending arteriosclerotic calcifications. Stable chunky right paratracheal calcified nodes. No pathologic mediastinal/hilar lymphadenopathy. Bony thorax intact again with osteopenia and degenerative changes throughout the spine. Limited upper abdomen again demonstrate mild fatty liver and cholecystectomy clips. Impression: 1. Stable chronic bony findings, fatty liver, and old granulomatous disease. 2. Remaining CT chest with contrast exam is again negative.
[2022-05-10 11:45] VITALS: PULSE 57; O2SAT 94
== END 2022-05-10 11:49 | disposition home or self-care (01) ==
LOC: ED 09:19
DX: R09.1 Pleurisy (principal); J44.9 Chronic obstructive pulmonary disease, unspecified; Z79.899 Other long term (current) drug therapy; Z79.52 Long term (current) use of systemic steroids
CPT/HCPCS: 36415; 71260; 80053; 82550; 84484; 85025; 93005; 96374; 99284; J1170

== ENCOUNTER 2024-12-14 15:36 | Emergency (ER) | payer MEDICARE, BC ==
[2024-12-14 15:56] VITALS: RESP 18; TEMP 98; O2SAT 93
--- NOTE | 2024-12-14 16:12 | ERPHSYRPT ---
- History of Present Illness Time Seen by Provider: 12/14/24 16:06 Source: patient Exam Limitations: no limitations Patient Subjective Stated Complaint: C/O left hand injury following a fall at home today around 1pm. Triage Nursing Assessment: Patient is alert and oriented. Ambulated back to ER without difficulties. Left wrist/hand wrapped; states neighbor EMT helped her with it. Hematoma present; no open skin alterations. Cap refill less than 3 seconds. Able move wrist and fingers without difficulties. Physician History: C/O left hand injury following a fall at home today around 1pm. Occurred: just prior to arrival Method of Injury: fell Severity of Pain-Max: mild Severity of Pain-Current: mild Extremities Pain Location: hand: left Modifying Factors: Improves With: cold therapy, immobilization Associated Symptoms: none Body Map: 1 - swelling Allergies/Adverse Reactions: erythromycin base Allergy (Verified 12/14/24 15:47) Penicillins Allergy (Verified 12/14/24 15:47) Home Medications: Aspirin 1 tab DAILY 03/22/17 [History] Multivitamin W-Minerals/Lutein [Centrum Silver Tablet] 1 tab DAILY 03/22/17 [History] Ibandronate Sodium 150 mg PO UD 05/10/22 [History] Tizanidine HCl [Zanaflex] 2 mg PO HS 05/10/22 [History] Hx Tetanus, Diphtheria Vaccination/Date Given: Yes Hx Influenza Vaccination/Date Given: No Hx Pneumococcal Vaccination/Date Given: Yes Immunizations Up to Date: Yes Travel Risk - International Travel Have you traveled outside of the country in past 3 weeks: No - Emerging Infectious Disease Are you exhibiting symptoms associated with any current EIDs: No - Review of Systems Constitutional: No Fever, No Chills Eyes: No Symptoms Ears, Nose, & Throat: No Symptoms Respiratory: No Cough, No Dyspnea Cardiac: No Chest Pain, No Edema, No Syncope Abdominal/Gastrointestinal: No Abdominal Pain, No Nausea, No Vomiting, No Diarrhea Genitourinary Symptoms: No Dysuria Musculoskeletal: Deformity (left hand), Fall, No Back Pain, No Neck Pain Skin: No Rash Neurological: No Dizziness, No Focal Weakness, No Sensory Changes Psychological: No Symptoms Endocrine: No Symptoms All Other Systems: Reviewed and Negative - Past Medical History Pertinent Past Medical History: Yes Neurological History: No Pertinent History Cardiac History: No Pertinent History Respiratory History: Asthma, COPD Endocrine Medical History: Hypothyroidism, Other Musculoskeletal History: Osteoarthritis GI Medical History: GERD Other Medical History: R TKA 08/2020 - Past Surgical History Past Surgical History: Yes Neuro Surgical History: No Pertinent History Gastrointestinal: Cholecystectomy Musculoskeletal: Joint Replacement, Other Female Surgical History: Hysterectomy Other Surgical History: PARTIAL THYROIDCECTOMY, left shoulder, BILATERAL TOTAL KNEE REPLACEMENT - Social History Smoking Status: Never smoker Exposure to second hand smoke: No Drug Use: none Patient Lives Alone: Yes - Social Determinants of Health Will the patient participate in the screening: Yes Do you worry about a steady place to live?: No Do you have any problems with any of the following?: No known problems In the past 12 months,have you had to go without utilities?: No Transportation Issues: No Has anyone in your support network made you feel unsafe?: No Have you or anyone in your house had to go without enough: No - Nursing Vital Signs Nursing Vital Signs: Initial Vital Signs Temperature 98 F 12/14/24 15:45 Pulse Rate 62 12/14/24 15:45 Respiratory Rate 18 12/14/24 15:45 Blood Pressure 194/83 12/14/24 15:45 O2 Sat by Pulse Oximetry 93 L 12/14/24 15:45 Pain Scale Pain Intensity 5 - Physical Exam General Appearance: alert Eyes, Ears, Nose, Throat Exam: moist mucous membranes Neck Exam: non-tender, supple Cardiovascular/Respiratory Exam: chest non-tender, normal breath sounds, regular rate/rhythm, no respiratory distress Abdominal Exam: non-tender, No guarding Back Exam: normal inspection, No vertebral tenderness Shoulder Exam: normal inspection Elbow/Forearm Exam: normal inspection Wrist Exam: normal inspection Hand Exam: bone tenderness, deformity, ecchymosis, soft tissue tenderness, swelling Neuro/Tendon Exam: normal sensation, normal motor functions Mental Status Exam: alert, oriented x 3, cooperative Skin Exam: normal color, warm, dry SpO2: 93 Procedures - Splinting Time of Procedure: 16:09 Location of Splint: Left, Hand Type of Splint: Other (Boxers splint) Splint Applied By: ED Nurse Pre-Proc Neuro Vasc Exam: normal Post-Proc Neuro Vasc Exam: neurovascular intact - Joint Reduction Time of Procedure: 16:08 - Course Nursing assessment & vital signs reviewed: Yes - Radiology Exams Hand X-ray Interpretation: Interpreted by me, Reviewed by me, Non-displaced Fracture Ordered Tests: Active Orders 24 hr Category Date Time Status HAND (MINIMUM 3 VIEWS) Stat Exams 12/14/24 15:43 Taken - Progress Progress: improved, pain not gone completely Counseled pt/family regarding: diagnosis, need for follow-up (orthoclinic) Medical Desision Making - Diagnostic Testing Diagnostic test were ordered, analyzed, and reviewed by me: Yes Radiological Interpretation: Interpreted by me, Reviewed by me - Risk of complications Low Risk: Low risk of morbidity from additional dx testing or treatment - Departure Departure Disposition: Home Clinical Impression: Metacarpal bone fracture Qualifiers: Encounter type: initial encounter Metacarpal bone: fourth Fracture type: closed Metacarpal location: neck Fracture alignment: nondisplaced Laterality: left Qualified Code(s): S62.365A - Nondisplaced fracture of neck of fourth metacarpal bone, left hand, initial encounter for closed fracture Condition: Stable Critical Care Time: No Referrals: JACKELINE COLEMAN [employer] [Primary Care Provider] - [facility] M-F [id number] Instructions: Hand Fracture (DC), Boxer's Fracture (DC) Additional Instructions: Discharge/Care Plan SEAN GOLDMAN was seen on 12/14/24 in the Emergency Room. The patient was counseled regarding Diagnosis,Lab results, Imaging studies, need for follow up and when to return to the Emergency Room. Prescriptions given: Discharge Note I have spoken with the patient and/or caregivers. I have explained the patient's condition, diagnosis and treatment plan based on the information available to me at this time. I have answered the patient's and/or caregiver's questions and addressed any concerns. The patient and/or caregivers have as good understanding of the patient's diagnosis, condition and treatment plan as can be expected at this point. The vital signs have been stable. The patient's condition is stable and appropriate for discharge from the emergency department. The patient will pursue further outpatient evaluation with the primary care physician or other designated or consulting physician as outlined in the discharge instructions. The patient and/or caregivers are agreeable to this plan of care and follow-up instructions have been explained in detail. The patient and/or caregivers have received these instruction. The patient/and or caregivers are aware that any significant change in condition or worsening of symptoms should prompt an immediate return to this or the closest emergency department or call 911. SEAN GOLDMAN was seen on 12/14/24 n the Emergency Room. At that time you were treated for an emergent condition, during your visit Laboratory, Radiology and/or other procedures may have been ordered. It is very important that you follow-up with your Primary Care Physician JACKELINE COLEMAN within the next 24- 48 hours to review your Emergency Room visit and the final results of testing that was ordered. Some test results such as Urine Cultures, Blood Cultures, and other cultures if ordered will not be finalized for 24-48 hours. If you do not have a Primary Care Provider please call the medical records department at [phone] ext [phone] to obtain a copy of your results or you may sign into our patient portal to obtain these results by visiting us @ [email or web address] and completing the following steps: 1. Click on the Patient Portal link 2. Click the Patient Self Enrollment Link to complete the enrollment form and entering your 3. Once the enrollment form is completed you will receive an email with a temporary ID and password at the email address you provided. 4. Next choose a user name and password. Your user name must be at least 4 characters long and your password must be at least 4 characters long. 5. Choose a security question from the list and provide your answer to the question. If you already have signed into the Health Portal you may access your Health Care Information 11/06 by the following steps: 1. Login to our website @ [email or web address] 2. Enter your original user name and password. FAQS The [facility] Portal is an online tool that contains your Lab Results, Radiology Reports, Visit History, Discharge Instructions and Health Summary Lab and Radiology Results will not be available for 72 hours on the portal. The Portal is a secure site, passwords are encryted and URLs are re-written so they cannot be copied and pasted. You and authorized family members are the only ones who can access your Portal. Also there is a timeout feature that protects your information if you leave the Portal page open. If you have technical difficulty please use the Contact Us link on the page this will allow you to submit any questions you have regarding the Portal or you may contact the Medical Record Department at [phone]. Prescriptions: Naproxen 375 mg [Naprosyn 375 mg] 375 mg PO Q8H #30 tablet
[2024-12-14] MEDS: TORAdol 30 mg Injection IM ONE (16:16)
[2024-12-14 16:17] VITALS: BP 162/84; PULSE 61
--- NOTE | 2024-12-14 18:34 | XRAY ---
Indication: Pain and swelling following fall. Comparison: None 3 view left hand demonstrates nondisplaced subcapital acute fracture distal 4th metacarpal with soft tissue swelling. Query additional cortical fracture base 4th metacarpal. Elsewhere osteopenia, minimal/mild degenerative changes all IP joints, advanced 1st metacarpal multangular scaphoid degenerative changes, and faint ulnocarpal degenerative chondrocalcinosis.
== END 2024-12-14 16:21 | disposition home or self-care (01) ==
LOC: ED 15:36
DX: S62.365A Nondisplaced fracture of neck of fourth metacarpal bone, left hand, initial encounter for closed fracture (principal); W19.XXXA Unspecified fall, initial encounter; Z79.899 Other long term (current) drug therapy
CPT/HCPCS: 29125; 73130; 99283